=== PATIENT | male | born 1980 | race Caucasian/White ===

== ENCOUNTER 2017-05-18 09:03 | Emergency (ER) | payer MEDICARE, MEDICAID ==
[~2017-05-18] VITALS: Ht 172.7 cm; Wt 118.3 kg
[~2017-05-18 09:03] MED LIST: ATEN50TA41 PO; CLON-364 PO; DIVA500T2 PO; DIVA500T4 PO; FLUO10CA13 PO; LEVO1CAP PO; LISI-167 PO; LURA40TA PO; OLAN20TA7 PO; ZIPR20CA2 PO
[2017-05-18 09:09] VITALS: BP 114/75
[2017-05-18] MEDS ORDERED: LISI-167 PO (09:25)
[2017-05-18] MEDS ORDERED: OLAN2.5T3 PO (09:25)
== END 2017-05-18 09:53 | disposition home or self-care (01) ==
LOC: ED 09:30
DX: J02.0 Streptococcal pharyngitis (principal); I10 Essential (primary) hypertension
CPT/HCPCS: 99283

== ENCOUNTER 2017-07-08 11:44 | Emergency (ER) | payer MEDICAID, MEDICARE ==
[~2017-07-08] VITALS: Ht 172.7 cm; Wt 120.0 kg
[~2017-07-08 11:44] MED LIST changes: +OLAN2.5T3 PO
[2017-07-08] MEDS ORDERED: ASPIRIN 81 MG TABLET CHEW PO ONE (12:30)
[2017-07-08] MEDS ORDERED: ASPIRIN 81 MG TABLET CHEW ONE (12:59)
[2017-07-08 13:08] LABS: ASPARTATE AMINO TRANSFERASE 13 U/L (15-37); BLOOD UREA NITROGEN 7 mg/dL (7-18)
[2017-07-08 13:13] LABS: IS PT STATUS REG ER OR PRE ER? YES
[2017-07-08 13:42] VITALS: BP 116/72
[2017-07-08 13:49] LABS: HEMATOCRIT 44.8 % (39.2-51.8); HEMOGLOBIN 15.3 g/dL (13.7-18.0); WHITE BLOOD COUNT 6.7 x10^3/uL (3.4-10)
== END 2017-07-08 14:25 | disposition home or self-care (01) ==
LOC: ED 12:08
DX: J98.01 Acute bronchospasm (principal); B34.9 Viral infection, unspecified; K21.9 Gastro-esophageal reflux disease without esophagitis; I10 Essential (primary) hypertension; F25.9 Schizoaffective disorder, unspecified; F32.9 Major depressive disorder, single episode, unspecified; F41.9 Anxiety disorder, unspecified; F17.210 Nicotine dependence, cigarettes, uncomplicated
CPT/HCPCS: 36415; 71020; 80053; 84484; 85025; 85379; 93005; 99285

== ENCOUNTER 2018-02-20 14:07 | Emergency (ER) | payer MEDICARE, MEDICAID ==
[~2018-02-20] VITALS: Ht 172.7 cm; Wt 116.4 kg
[2018-02-20] MEDS ORDERED: MAALOX/HYOSCYAMINE/LIDOCAINE 45 ML BTL PO ONE ×2 (15:00→19:00)
[2018-02-20 15:34] LABS: BASOPHILS # (AUTO) 0.03 x10^3/uL (0-0.1); BASOPHILS % (AUTO) 0 % (0-1); EOSINOPHILS # (AUTO) 0.28 x10^3/uL (0-0.4); EOSINOPHILS % (AUTO) 4 % (1-7); LYMPHOCYTES % (AUTO) 31 % (22-44); MD NO; MEAN CORPUSCULAR HEMOGLOBIN 32.9 pg (27.5-34.5); MEAN CORPUSCULAR HGB CONC 33.8 g/dL (33.2-36.2); MEAN CORPUSCULAR VOLUME 97.4 fL (81-97); MEAN PLATELET VOLUME 8.1 fL (7.4-10.4); MONOCYTES # (AUTO) 0.57 x10^3/uL (0.2-0.8); MONOCYTES % (AUTO) 7 % (2-9); NEUTROPHILS # (AUTO) 4.54 x10^3/uL (1.8-6.8); NEUTROPHILS % (AUTO) 58 % (42-75); PLATELET COUNT 292 x10^3/uL (130-400); RED BLOOD COUNT 4.67 x10^6/uL (4.38-5.82); RED CELL DISTRIBUTION WIDTH 13.6 % (9.4-14.8)
[2018-02-20 15:41] LABS: ALBUMIN 3.9 g/dL (3.4-5.0); ANION GAP 6 mmol/L (5-15); CALCIUM 8.7 mg/dL (8.5-10.1); CHLORIDE 108 mmol/L (98-107)
[2018-02-20 15:48] LABS: ALANINE AMINOTRANSFERASE 41 U/L (12-78); ALKALINE PHOSPHATASE 61 U/L (45-117); BILIRUBIN,TOTAL 0.2 mg/dL (0.2-1.0); CREATININE 0.75 mg/dL (0.7-1.3); TOTAL PROTEIN 7.7 g/dL (6.4-8.2); TROPONIN I < 0.015 ng/mL (0.000-0.045)
[2018-02-20 17:27] VITALS: BP 130/85
[2018-02-20] MEDS ORDERED: MAALOX/HYOSCYAMINE/LIDOCAINE 45 ML BTL ONE (18:38)
== END 2018-02-20 19:31 | disposition home or self-care (01) ==
LOC: ED 19:20
DX: K29.00 Acute gastritis without bleeding (principal); K21.9 Gastro-esophageal reflux disease without esophagitis; I10 Essential (primary) hypertension; F17.200 Nicotine dependence, unspecified, uncomplicated; Z88.8 Allergy status to other drugs, medicaments and biological substances
CPT/HCPCS: 36415; 71045; 80053; 84484; 85025; 93005; 99285

== ENCOUNTER 2018-03-11 11:37 | Emergency (ER) | payer MEDICARE, MEDICAID ==
[~2018-03-11] VITALS: Ht 172.7 cm; Wt 115.0 kg
[2018-03-11 11:39] VITALS: BP 136/78
[2018-03-11] MEDS ORDERED: IBUPROFEN 200 MG TABLET ONE (12:16)
[2018-03-11] MEDS ORDERED: METHOCARBAMOL 750 MG TABLET ONE (12:16)
[2018-03-11] MEDS ORDERED: IBUPROFEN 200 MG TABLET PO ONE (12:30)
[2018-03-11] MEDS ORDERED: METHOCARBAMOL 750 MG TABLET PO ONE (12:30)
== END 2018-03-11 12:52 | disposition home or self-care (01) ==
LOC: ED 12:47
DX: S39.012A Strain of muscle, fascia and tendon of lower back, initial encounter (principal); M72.2 Plantar fascial fibromatosis; I10 Essential (primary) hypertension; K21.9 Gastro-esophageal reflux disease without esophagitis; F25.9 Schizoaffective disorder, unspecified; F17.200 Nicotine dependence, unspecified, uncomplicated; R73.09 Other abnormal glucose; X50.0XXA Overexertion from strenuous movement or load, initial encounter; Y93.89 Activity, other specified; Y92.89 Other specified places as the place of occurrence of the external cause; Y99.8 Other external cause status
CPT/HCPCS: 82962; 99284